=== PATIENT | female | born 1965 | race Asian ===

== ENCOUNTER 2016-10-18 15:45 | Emergency (ER) | payer OTHER ==
[2016-10-18 16:13] VITALS: BP 117/92
[2016-10-18] MEDS ORDERED: IBUPROFEN 600 MG TABLET PO STA (17:08)
--- NOTE | 2016-10-18 17:08 | ED Physician Documentation ---
PD HPI SKIN - Stated complaint Stated Complaint: RT KNEE PX - Chief complaint Chief Complaint: Ext Problem - History obtained from History obtained from: Patient - History of Present Illness Timing - duration: Days (few) Timing - details: Gradual onset, Still present Location: RLE (she fell onto her knee about 3-4 weeks ago and has had small scab on the area. No signs of infection until 2-3 days ago with redness and swelling gradually developing.) Quality / character: Painful, Burning, Discolored (red), Swelling. No: Draining Associated symptoms: No: Fever, Myalgias, Headache, N/V/D Similar symptoms before: Has not had sx before Recently seen: Not recently seen Review of Systems Constitutional: denies: Fever, Chills, Myalgias GI: denies: Nausea, Vomiting, Diarrhea Musculoskeletal: reports: Extremity swelling Neurologic: denies: Focal weakness, Numbness PD PAST MEDICAL HISTORY - Past Medical History Cardiovascular: None Endocrine/Autoimmune: None GI: None - Past Surgical History Past Surgical History: Yes General: Appendectomy /[employer]: section - Present Medications Home Medications: Ambulatory Orders Medication Instructions Recorded Confirmed Cephalexin [Keflex] 500 mg PO QID #20 capsule 10/18/16 HYDROcod/ACETAM 5/325 [[place] 5/325] 1 tab PO Q6H PRN #12 tablet 10/18/16 Naproxen 375 mg PO BID #20 tablet 10/18/16 - Allergies Allergies/Adverse Reactions: Allergies Allergy/AdvReac Type Severity Reaction Status Date / Time No Known Drug Allergies Allergy Verified 10/18/16 15:54 - Social History Does the pt smoke?: No Smoking Status: Never smoker Does the pt drink ETOH?: No Does the pt have substance abuse?: No - Immunizations Immunizations are current?: Yes Immunizations: TDAP >10years/unknown PD ED PE NORMAL - Vitals Vital signs reviewed: Yes - General General: Alert and oriented X 3, No acute distress, Well developed/nourished - Cardiac Cardiac: RRR, No murmur - Respiratory Respiratory: Clear bilaterally - Abdomen Abdomen: Soft, Non tender - Derm Derm: Normal color, Warm and dry - Extremities Extremities: Other (right knee with swelling, redness, tender prepatellar area with bursal effusion. No joint effusion per se. Small hard scab on front of knee , without discharge. ) Results - Vitals Vitals: Oxygen O2 Source Room air - Labs Labs: Microbiology 10/18/16 17:50 Body Fluid Culture - Preliminary Other - Abscess No growth Procedures - Arthrocentesis Joint: Knee (prepatellar bursal aspiration) Preparation: Sterile prep and drape Anesthesia: Lidocaine 1% Fluid: Bloody, Sent for cell count, Sent for culture, Fluid obtained - cc (5). No: Cloudy Aftercare: Dressing applied, No complications PD MEDICAL DECISION MAKING - ED course Complexity details: re-evaluated patient, considered differential, d/w patient Departure - Departure Disposition: Home, Self Care Clinical Impression: Prepatellar bursitis of right knee Condition: Stable Record reviewed to determine appropriate education?: Yes Instructions: ED Bursitis Follow-Up: Jose Alberto Phillips MD [Provider Admit Priv/Credential] - Prescriptions: Cephalexin [Keflex] 500 mg PO QID #20 capsule Naproxen 375 mg PO BID #20 tablet HYDROcod/ACETAM 5/325 [[place] 5/325] 1 tab PO Q6H PRN #12 tablet PRN Reason: Pain Comments: Right now it is hard to tell inflammatory versus early infectious bursitis. So use naproxen twice daily for the next 7-10 days and add Tylenol or hydrocodone if needed for pain. We will also treat with cephalexin initially which is an antibiotic. The culture from the knee should result in 2-3 days and that will define whether there is an infection or not. Recheck if worsening over the next few days. Otherwise follow-up with your primary care in 2 days. Discharge Date/Time: 10/18/16 18:13
[2016-10-18] MEDS ORDERED: ACETAMINOPHEN 325 MG TABLET PO STA (17:09)
[2016-10-18] MEDS ORDERED: IBUPROFEN 600 MG TABLET PO ONE (17:23)
[2016-10-18] MEDS ORDERED: ACETAMINOPHEN 325 MG TABLET PO ONE (17:23)
--- NOTE | 2016-10-18 17:48 | XRAY Preliminary Report ---
Exam: XR Knee 3 View RT IMPRESSION: 1. Marked prepatellar edema. Correlate clinically to determine etiology. 2. Very small effusion. 3. No bony abnormality. [facility] SITE ID: [id number]
[2016-10-18] MEDS ORDERED: CEPHALEXIN 250 MG CAPSULE PO STA (17:57)
[2016-10-18] MEDS ORDERED: CEPHALEXIN 250 MG CAPSULE PO ONE (18:04)
--- NOTE | 2016-10-18 18:11 | XRAY Report ---
EXAM: RIGHT KNEE RADIOGRAPHY EXAM DATE: 10/18/2016 05:39 PM. CLINICAL HISTORY: Injury 1 month ago. Right knee pain and swelling that began yesterday. COMPARISON: None. TECHNIQUE: 3 views. FINDINGS: Bones: Normal. No fractures or bone lesions. Joints: Very small joint effusion. Joint compartments normal caliber without bony reactive changes. B ones in anatomic alignment. Soft Tissues: 2.5 cm thick marked uniform edema subcutaneous soft tissues anterior knee, epicenter ov er the patella. No associated air nor radiopaque foreign body. IMPRESSION: 1. Marked prepatellar edema. Correlate clinically to determine etiology. 2. Very small effusion. 3. No bony abnormality. [facility] Referring Provider Line: [phone] SITE ID: [id number]
== END 2016-10-18 18:13 | disposition home or self-care (01) ==
LOC: ED 15:45
DX: M70.41 Prepatellar bursitis, right knee (principal)
CPT/HCPCS: 20610; 73562; 87070; 87205; 99283; A9270; 89051